=== PATIENT | male | born 1970 | race Caucasian/White ===

== ENCOUNTER 2016-08-01 11:26 | Emergency (ER) | payer OTHER ==
[2016-08-01] MEDS ORDERED: HYDROCODONE/ACETAMINOPHEN 5/325MG TABLET ONE (12:21)
[2016-08-01] MEDS ORDERED: METHOCARBAMOL 750 MG TABLET ONE (12:21)
--- NOTE | 2016-08-01 12:44 | CT ---
L-SPINE W/O CON COMPARISON: Chest 2 views, 01/13/2013 HISTORY: Ground-level fall, back pain, prior L1-2 compression fracture. Technique: Using a [employer] Aquilion [address] scanner, images obtained through the lumbar spine reconstructed coronal 2-D and sagittal 2-D images. An automated dose reduction technique was used to minimize patient radiation dose. Dose information: CTDIvol (mGy): 40.50 DLP(mGycm): 1129.40 FINDINGS: Vertebral alignment: Normal. Vertebral bodies: Old moderate compression fracture of L1. Old mild superior endplate compression fracture of L2. Mild to moderate anterolateral osteophytes, L1-L2 and L2-L3. No acute finding. Intervertebral discs: L1 to moderate narrowing. Spinal canal: Normal. Foramina: Normal. Pedicles: Normal. Facet joints: Normal. Posterior arches: Normal. Paraspinal soft tissues: Normal. IMPRESSION: No acute finding. Old compression fracture deformities of the superior endplates of L1 and L2. Spondylosis with moderate disc narrowing at L1-2, mild without disc narrowing at L2-3. The report was sent to the emergency department [employer] [facility] record [facility] 08/01/2016 at 12:45
== END 2016-08-01 13:30 | disposition home or self-care (01) ==
LOC: ED 11:26
DX: M54.5 Low back pain (principal); F17.210 Nicotine dependence, cigarettes, uncomplicated; Z87.81 Personal history of (healed) traumatic fracture; W00.0XXA Fall on same level due to ice and snow, initial encounter
CPT/HCPCS: 72131; 99283 ×2; A9270 ×2